=== PATIENT | female | born 1985 | race Caucasian/White ===

== ENCOUNTER 2022-06-12 10:53 | Emergency (ER) | payer OTHER, SELFPAY ==
--- NOTE | ~2022-06-12 | US_ITS ---
EXAMINATION: US right upper quadrant DATE: 06/12/2022 15:13 INDICATION: Right upper quadrant pain TECHNIQUE: Multiple grayscale and Doppler ultrasound images of the abdomen were obtained. COMPARISON: None available FINDINGS: Bowel gas obscures visualization of the pancreas. The visualized portions of the pancreas a re unremarkable. The liver is normal with normal echogenicity and echotexture. No surface nodularity. Normal hepatopetal flow in the main portal vein. A stone is present in the nondistended gallbladder. No pericholecystic fluid or gallbladder wall thickening. The normal common bile duct measures 3 mm. There was no sonographic Martinez sign. IMPRESSION: 1. Cholelithiasis without evidence of cholecystitis. Reviewed, dictated and finalized at location [facility]. [employer]
[2022-06-12 11:18] VITALS: BP 139/91; PULSE 85; RESP 18; TEMP 36.6; O2SAT 99
[2022-06-12 11:38] LABS: Basophils Percent Auto 0.4 % (0.2-1.2); Eosinophils Absolute Auto 0.1 K/mm3 (0-0.3); Eosinophils Percent Auto 0.8 % (0-4.4); Hematocrit 39.9 % (37.0-47.0); Hemoglobin 13.5 g/dL (12.0-15.0); Immature Granulocyte Absolute 0.05 K/mm3 (0.00-0.031); Immature Granulocyte Percent A 0.5 % (0-0.5); Lymphocytes Absolute Auto 2.59 K/mm3 (0.9-3.2); Mean Corpuscular HGB Conc 33.8 g/dl (32-36); Mean Corpuscular Hemoglobin 29.5 pg (26-34); Mean Corpuscular Volume 87.3 fl (80-100); Mean Platelet Volume 9.5 fl (7.4-10.4); Monocytes Absolute Auto 0.5 K/mm3 (0.1-0.6); Monocytes Percent Auto 5.2 % (2.6-8.5); Neutrophils Absolute Auto 6.7 K/mm3 (1.3-6.7); Neutrophils Percent Auto 67.1 % (45.5-73.1); Platelet Count Result 249 k/mm3 (150-375); Red Blood Count 4.57 M/mm3 (4.2-5.4); Red Cell Distribution Width 12.8 % (11.5-14.5)
[2022-06-12 11:47] LABS: Appearance Urine Slightly Cloudy (Clear); Bilirubin Urine Negative (Negative); Blood Urine Trace-intact (Negative); Color Urine Yellow (Yellow); Glucose Urine UA Negative (Negative); Ketones Urine Negative (Negative); Leukocyte Esterase Ur Negative LEU/UL (Negative); Nitrate Urine Negative (Negative); Protein Urine Negative (Negative); Urobilinogen Urine 0.2 mg/dL (<2.0); pH Urine 7.5 (5.0-9.0)
[2022-06-12 11:50] LABS: Mucus Urine Rare /lpf; Squamous Epithelial Cell Urine Moderate /hpf (Few)
[2022-06-12 11:51] LABS: Alanine Aminotransferase 25 U/L (6-35); Albumin Level 4.4 g/dL (3.5-5.1); Alkaline Phosphatase 68 U/L (38-126); Anion Gap 4 mmol/L (8-16); Aspartate Amino Transferase 23 U/L (14-36); Bilirubin,Total 0.7 mg/dL (0.2-1.3); Blood Urea Nitrogen 13 mg/dL (7-17); Calcium 8.9 mg/dL (8.4-10.2); Carbon Dioxide 26 mmol/L (22-30); Chloride 104 mmol/L (98-107); Estimated CRCL calculation 144 ml/min; Estimated Glomerular Filt Rate > 60; Glucose 94 mg/dL (65-110); Lipase 47 U/L (23-300); Potassium 4.1 mmol/L (3.4-5.0); Sodium 134 mmol/L (137-145)
[2022-06-12 11:53] LABS: Add Urine Microscopic? YES
[2022-06-12] MEDS: MORPHINE SULFATE (*CRX) 4 MG/ML INJ IV PUSH (14:38)
[2022-06-12] MEDS: ONDANSETRON INJ 4 MG/2 ML VIAL IV PUSH (14:38)
--- NOTE | 2022-06-12 17:25 | ED.ABDPAIN ---
HPI - Abdominal Pain General Chief Complaint: Abdominal Pain Stated Complaint: gallstones, abd pain Time Seen by Provider: 06/12/22 14:07 History of Present Illness HPI narrative: Patient is a 36-year-old female who presents ER with right upper quadrant abdominal pain. Recently diagnosed with cholelithiasis. Was discharged home without pain medication or nausea medication. She has been having persistent pain when she eats and drinks. She also has burning epigastric discomfort. She is on no reflux medication. Denies fevers chills or sweats. Pain will occasionally radiate into her right back. No urinary frequency urgency or dysuria. Denies alleviating factors other than time. Related Data Allergies Allergy/AdvReac Type Severity Reaction Status Date / Time No Known Allergies Allergy Verified 06/12/22 14:07 Review of Systems Review of Systems: All systems reviewed & are unremarkable except as noted in HPI and below Constitutional: Constitutional: Denies chills, Denies fatigue and Denies fever(s) ENT: Denies nasal congestion and Denies sore throat Cardiovascular: Cardiovascular: Denies rapid heart rate and Denies radiating jaw, neck or arm pain Respiratory: Respiratory: Denies cough, Denies dyspnea and Denies wheezing Gastrointestinal: Gastrointestinal: Reports abdominal pain, Reports bloating, Reports heartburn, Reports nausea and Denies vomiting Genitourinary: Genitourinary: Denies hematuria, Denies nocturia and Denies dysuria PMFSH Past Medical History Medical History (Updated 06/12/22 @ 19:54 by Diego Hubbard MD) Cholelithiasis Tubal Surgical History Surgical History (Updated 06/12/22 @ 19:54 by Diego Hubbard MD) No pertinent past surgical history Social History Social History (Updated 06/12/22 @ 10:13 by Janet Ibrahim MA) Smoking packs per day: 1 Smoking cigarettes per day: 20.0 Years smoked: 10 Smoking pack-years: 10.00 Smoking status: Unknown if ever smoked Tobacco type: cigarettes Alcohol intake: never Substance use: never Lack of Transportation: No Lack of Food: Never True Current Housing: I Have Housing Concerned About Future Housing: No Difficulty Paying Gas/Electric Bills: No Difficulty Paying for Meds: No Currently Unemployed: No Education: High School Diploma/GED Difficulty w/ Childcare or Family Care: No Living arrangements: with family Additional living arrangements comments: Boyfriend and kids Occupation/Education: occupation Exam Narrative: GENERAL: Well-appearing, well-nourished, and in no acute distress. HEAD: Normocephalic, atraumatic. ENT: Mucous membranes moist. CHEST: Clear to auscultation. No respiratory distress. HEART: Regular rate and rhythm. Normal peripheral pulses. ABDOMEN: Soft, tender palpation right upper quadrant with guarding, nondistended. EXTREMITIES: Normal range of motion. No edema. SKIN: Warm, dry, no rash. NEURO: Alert and oriented x3. PSYCH: Normal mood and affect. Course Course Emergency Course: Pain improved. Discussed no evidence of infection and impaction of stone. Recommend follow-up with general surgery and will give supportive care medication. Patient verbalized understanding this. Vital Signs Vital signs: Vital Signs Temperature 97.9 F 06/12/22 11:18 Pulse Rate 85 06/12/22 11:18 Respiratory Rate 18 06/12/22 11:18 Blood Pressure 139/91 H 06/12/22 11:18 Pulse Oximetry 99 06/12/22 11:18 Oxygen Delivery Room Air 06/12/22 11:18 Temperature 97.9 F 06/12/22 11:18 Pulse Rate 86 06/12/22 17:57 Respiratory Rate 16 06/12/22 17:57 Blood Pressure 130/76 06/12/22 17:57 Pulse Oximetry 99 06/12/22 17:57 Oxygen Delivery Room Air 06/12/22 11:18 MDM - Abdominal Pain Lab Data 06/12/22 11:25 06/12/22 11:25 Labs: Lab Results 06/12/22 06/12/22 06/12/22 Range/Units 11:25 11:25 11:30 WBC 10.0 (4.5-10
[2022-06-12 17:57] VITALS: BP 130/76; PULSE 86; RESP 16; O2SAT 99
== END 2022-06-12 17:59 | disposition home or self-care (01) ==
PROVIDERS: Emergency Provider Emergency Medicine; PCP Internal Medicine
DX: K80.50 Calculus of bile duct without cholangitis or cholecystitis without obstruction (principal); F17.210 Nicotine dependence, cigarettes, uncomplicated
CPT/HCPCS: 36415; 76705; 80053; 81001; 81025; 83690; 85025; 87086; 96374; 96375; 99284; J2270; J2405

== ENCOUNTER 2022-06-23 08:55 | Outpatient (CLI) | payer OTHER, SELFPAY ==
[2022-06-23 10:18] LABS: Amylase 67 U/L (30-110)
== END 2022-06-23 08:56 | disposition home or self-care (01) ==
LOC: ANHSURGERY 08:58
PROVIDERS: PCP Internal Medicine; Visit Provider Surgery
DX: Z01.812 Encounter for preprocedural laboratory examination (principal); K80.20 Calculus of gallbladder without cholecystitis without obstruction
CPT/HCPCS: 36415; 82150; 86850; 86900; 86901

== ENCOUNTER 2022-06-27 02:34 | Day surgery (SDC) | payer OTHER, SELFPAY ==
[2022-06-20 10:22] VITALS: BMI 28.7
--- NOTE | 2022-06-20 10:25 | PC.NURSE ---
Report to the Outpatient Waiting Room, entrance under the green pavilion located off [facility], at time 6:00 on date 06/27/22. Planned Procedure Time: 7:30. Time changes happen often and if your time is changed the preop area will call you the afternoon before. - You and your visitor will be asked to self-screen and do not enter if you have any COVID symptoms. - Only one visitor is requested with a max of two and NO children visitors are allowed at this time. - The patient visitor may be requested to leave or wait in car when not with patient due to distancing restrictions. - A mask is optional within the hospital at this time. Patients may have clear liquids (water, carbonated beverages, clear teas, apple juice) until 3 hours prior to surgery with a maximum of 20 ounces. - No food from midnight until time of surgery Take the following medications with a SIP of water the morning of surgery: CIPRO DO NOT STOP ANY OF YOUR OTHER PRESCRIPTION MEDICATIONS PRIOR TO SURGERY EXCEPT THE FOLLOWING Medications to discontinue per physician: N/A Date to take last dose: N/A Please no make-up, nail romansh, hairspray, perfume, deodorant, or body powder the day of surgery. No jewelry (including any body piercings) or valuables the day of surgery, leave them at home. Please take a shower or bath the night before, or the morning of, surgery with an antibacterial soap (HIBICLENS). Wear comfortable, loose fitting clothing. - Jewelry must be removed prior to entering the operating room. Rings and piercings that are not removed may be cut off. - The hospital will not accept responsibility for valuables. - Please leave all valuables, including medications, at home the day of surgery. If you are going home after surgery, a licensed city bus driver must drive you home. - NO public transportation without another adult if you receive anesthesia. - We recommend that an adult stay with you for 24 hours following discharge. - We also recommend that you do not drive, make important decision, drink alcoholic beverages, or take any drugs that were not prescribed by your health care provider for at least 24 hours after your discharge time. Follow any additional instructions given to you from your surgeon. If you or anyone in your household have experienced Covid symptoms in the past week, please notify your surgeon or the nurse liaison at the phone number below for possible testing. Telephone instructions given to LEE ANN VILLALOBOS and asked if any additional questions and then verbalized understanding. Patient advised to call surgeon office or pre surgery nurse liaison [phone] if any additional questions.
[2022-06-27] VITALS (9 sets, daily range): BP systolic 100–120; BP diastolic 54–78; PULSE 63–73; RESP 13–16; TEMP 36.3–36.5; O2SAT 100
[2022-06-27] MEDS: ACETAMINOPHEN 500 MG TABLET 1000 MG PO (06:26)
[2022-06-27] MEDS: KETOROLAC 15 MG/ML VIAL (*BKC) IV PUSH (06:36)
[2022-06-27] MEDS: INDOCYANINE GREEN 25 MG VIAL 3.75 MG IV PUSH (06:37)
[2022-06-27] MEDS: LACTATED RINGERS 1,000 ML 30 ML IV CONT ×2 (06:45→09:27)
[2022-06-27] MEDS: SCOPOLAMINE 1.5 MG PATCH TRANSDERM (07:00)
--- NOTE | 2022-06-27 07:13 | WPDHPUPDATE1 ---
History and Physical Update Update Date/Time: 06/27/22 07:13 History and Physical has been reviewed, including an updated exam of the patient. There are NO changes in the patient's condition. Risks, benefits, and alternatives have been discussed and questions answered. Patient agrees to proceed with procedure.
--- NOTE | 2022-06-27 07:14 | P.PNAN_ITS ---
Anes - Initial Pre Proc Eval Procedure: Operation Date: 06/27/22 07:30 Proposed Procedures p Robotic Assisted Cholecystectomy, Possible Open - Mushtaq Waddell MD Date/Time: 06/27/22 07:14 Surgeon: Mushtaq Waddell MD Pre Op Diagnosis: chronic cholecystitis secondary to gallstones Patient Data Age: 36 Gender: F Height: 1.68 m Weight: 80.75 kg Allergies Allergy/AdvReac Type Severity Reaction Status Date / Time No Known Allergies Allergy Verified 06/20/22 10:21 Home Medications Medication Instructions Recorded Confirmed Type pantoprazole 40 mg tablet,delayed 40 mg PO HS #14 tabs 06/12/22 06/20/22 Rx release ciprofloxacin HCl 500 mg tablet 500 mg PO Q12H #15 tabs 06/18/22 06/20/22 Rx (Cipro) Patient hx anesthesia problems: none Family hx anesthesia problems: none Results Review: All pre-operative results and documents have been reviewed as part of the pre- operative evaluation. [facility], [facility] Past Medical History Medical History Cholelithiasis Tubal Surgical History Surgical History No pertinent past surgical history Family History Family History Father Hypertension Diabetes mellitus Myocardial infarction Other FH: gallbladder disease Maternal grandmother, multiple maternal aunts, and multiple maternal great-aunts all with gallbladder disease and hx of lap eveline Social History Social History Smoking packs per day: 0.75 Smoking cigarettes per day: 15.0 Years smoked: 16 Smoking pack-years: 12.00 Smoking status: Current every day smoker Tobacco type: cigarettes Alcohol intake: never Substance use: current Substance use type: marijuana Lack of Transportation: No Lack of Food: Never True Current Housing: I Have Housing Concerned About Future Housing: No Difficulty Paying Gas/Electric Bills: No Difficulty Paying for Meds: No Currently Unemployed: No Education: High School Diploma/GED Difficulty w/ Childcare or Family Care: No Living arrangements: with family Additional living arrangements comments: Boyfriend and kids Occupation/Education: occupation 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 Informed Consent: The patient's anesthetic plan and its attendant risks and benefits were discussed with the patient/family/POA. Questions were solicited and answers provided to the satisfaction of the patient/family/POA.
[2022-06-27] MEDS: ceFAZolin 2 GM/D5W 50 ML 2 GM/50 ML BAG IVPB (07:27)
[2022-06-27] MEDS: BUPivacaine HCL 0.5% PF 30 ML VIAL INFILTRATE (07:56)
[2022-06-27] MEDS: LIDO 1%/EPINEPHRINE 1:100,000 20 ML VIAL 30 ML INFILTRATE (07:56)
--- NOTE | 2022-06-27 09:24 | W.PM.PROC2 ---
Procedure Note - Detailed Date of Procedure 06/27/22 Pre-op Diagnosis chronic cholecystitis secondary to gallstones Post-op Diagnosis Same Procedure Performed Robotic assisted laparoscopic cholecystectomy Surgeon Mushtaq Waddell MD Hand Grinder Efrain HEARD Anesthesia General Indications Patient is a 36-year-old female who was had moderate to severe right upper quadrant abdominal pain radiating to the upper back. She has had a visit to the emergency room where the pain for an ultrasound was performed showing gallstones. She is being brought to the operating now for an elective laparoscopic cholecystectomy due to what is suspected to be chronic cholecystitis secondary to cholelithiasis. Findings Mild chronic inflammatory changes of the gallbladder. A few adhesions of the omentum to the gallbladder without acute inflammatory changes. Stones were noted within the gallbladder on palpation prior to sending the gallbladder to pathology Description of Procedure After informed consent was obtained the patient was brought to the operating room where she was placed in the supine position and then general endotracheal anesthesia was administered. The abdomen was then prepped and draped in usual sterile fashion. A time-out was then performed correctly identifying the patient as well as procedure to be performed. She was given Ancef for perioperative IV antibiotics. ICG was injected in the preoperative area for biliary imaging. I 1st started by entering the abdomen in the left upper quadrant utilizing a direct optical insertion. Once inside the abdomen insufflated to adequate pneumoperitoneum of 15mmHg of CO2. Just below the umbilicus there was an omental adhesion without was below the area that I would be placing a trocar port. Under direct visualization I then placed 4 separate 8mm robotic trocar ports across the mid abdomen. I then switched out the left upper quadrant trocar port for a 10mm standard laparoscopic port. The [employer] robot was then brought to the patient's bedside and docked over the right shoulder. The robotic arms were then attached to the robotic ports and the robotic instruments were advanced into the abdomen under direct visualization. I then scrubbed out the procedure and sat down at the robotic console to perform the dissection robotically. A robotic graspers used hold the gallbladder at the dome and the gallbladder was elevated over the right half of the liver towards the right shoulder. A 2nd grasper was used of the gallbladder and infundibulum. Utilizing hook electrocautery I then divided the omental adhesions to the gallbladder without difficulty. I then proceeded to strip down the visceroperitoneum off of the infundibular gallbladder until I identified a structure which I felt was the cystic duct. This structure was dissected out circumferentially. A structure posterior and medial to the cystic duct was identified and this was the cystic artery. This was dissected out circumferentially as well. I then used firefly to verify that the structure I dissected out was consistent with the cystic duct and also identified the common bile duct and the common bile duct cystic duct junction. I then placed a robotic clip onto the cystic duct proximally and another clip distally on the infundibular gallbladder. The cystic artery was clipped in a similar fashion. Both structures were then divided utilizing the hook robotic cautery. The gallbladder was then resected off the liver. There was spillage of a small amount of bile from the gallbladder but no stones were released from the gallbladder. The gallbladder was then placed into an Endo-Catch bag and brought out through the left upper quadrant 10mm trocar port site. I then irrigated out the right upper quadrant the abdomen and aspirated the small amount of spilled bile in the area. Hemostasis in the liver bed was good. I then had the robotic instruments removed from the abdomen and the
[2022-06-27] MEDS: oxyCODONE HCL (*CRX) 5 MG TAB IR PO (10:24)
== END 2022-06-27 11:14 | disposition home or self-care (01) ==
PROVIDERS: PCP Internal Medicine; Visit Provider Surgery
PROC: 0FT44ZZ Resection of Gallbladder, Percutaneous Endoscopic Approach (ICD-10-PCS; CPT 47562; principal; 2022-06-27 07:30)
DX: K80.10 Calculus of gallbladder with chronic cholecystitis without obstruction (principal); F17.210 Nicotine dependence, cigarettes, uncomplicated; F12.90 Cannabis use, unspecified, uncomplicated
CPT/HCPCS: 47562; S2900; 88304; A9270; J0690; J1100; J1170; J1885; J2250; J2370; J2405; J2704; J2710; J3010; J7030; J7120